=== PATIENT | male | born 1945 | race Caucasian/White ===

== ENCOUNTER 2018-03-12 21:40 | Observation (INO) | payer MEDICARE, OTHER ==
[~2018-03-12] VITALS: Ht 182.9 cm; Wt 70.3 kg
--- OUTSIDE RECORDS SUMMARY | 2018-03-12 21:44 | XMS REPORT ---
Author Author [facility] Address Unknown Phone Unavailable Care Team Providers Care Sleeping Car Porter Name Role Phone Unavailable Unavailable Problems This patient has no known problems. Allergies, Adverse Reactions, Alerts This patient has no known allergies or adverse reactions. Medications This patient has no known medications.
--- OUTSIDE RECORDS SUMMARY | 2018-03-12 21:44 | XMS REPORT | Clinical Summary ---
Author Author [employer] Organization [facility] Address Unknown Phone Unavailable Care Team Providers Care Telecom Coordinator Name Role Phone Bart Valiente MD PCP Allergies Comments Active Allergy Reactions Severity Noted Date Procaine 01/25/2017 Medications No known medications Active Problems Not on file Encounters Care Team Description Date Type Specialty Jo Conway MD Back pain, unspecified back location, unspecified back pain laterality, unspecified chronicity (Primary Dx) 03/26/2017 Transcribe Physical Therapy Orders after 03/11/2017 Social History Date Tobacco Use Types Packs/Day Years Used Unknown If Ever Smoked Alcohol Use Drinks/Week oz/Week Comments Defer Sex Assigned at Date Recorded Not on file Industry Job Start Date Occupation Not on file Not on file Not on file Travel End Travel History Travel Start No recent travel history available. Last Filed Vital Signs Not on file Plan of Treatment Health Maintenance Due Date Last Done Comments COLON CANCER SCREENING 1996 SHINGRIX VACCINE (1 of 2) 1996 ZOSTER VACCINE 2006 PNEUMOCOCCAL 10/07/2011 POLYSACCHARIDE VACCINE AGE 65 AND OVER PNEUMOCOCCAL-13 10/07/2011 INFLUENZA VACCINE 11/27/2017 Results Not on fileafter 03/11/2017 Insurance Payer Benefit Subscriber ID Type Phone Address Plan / Group AETNA AETNA xxxxxxxxxxx HMO HMO,POS,EP O, MC/EC Advance Directives Patient has advance care planning documents on file. For more information, pleas e contact: Guzman Dunaway [address] [facility] [address]
[2018-03-12 22:51] LABS: BASOPHILS % 0.2 % (0.0-1.0); EOSINOPHILS % 0.1 % (0.0-6.0); HEMOGLOBIN 15.3 g/dL (14.0-18.0); LYMPHOCYTES # (AUTO) 1.1 (1.0-3.2); LYMPHOCYTES % 6.4 % (18.0-39.1); MEAN CORPUSCULAR HEMOGLOBIN 29.7 pg (28-32); MEAN CORPUSCULAR VOLUME 87.2 fL (81-99); MONOCYTES # (AUTO) 0.7 (0.2-0.8); MONOCYTES % 4.4 % (4.4-11.3); NEUTROPHILS # (AUTO) 14.6 (2.1-6.9); NEUTROPHILS % 88.4 % (38.7-80.0); PLATELET COUNT 276 x10e3/uL (140-360); RED BLOOD COUNT 5.16 x10e6/uL (4.3-5.7); RED CELL DISTRIBUTION WIDTH 13.5 % (11.7-14.4)
[2018-03-12] MEDS: LIDOCAINE 5% PATCH TP SCH (23:00)
[2018-03-12 23:09] LABS: ANION GAP 17.5 mmol/L (8-16); BLOOD UREA NITROGEN 15 mg/dL (7-26); CARBON DIOXIDE 21 mmol/L (22-29); CHLORIDE 100 mmol/L (98-107); CREATININE, SERUM 0.89 mg/dL (0.72-1.25); POTASSIUM 4.5 mmol/L (3.5-5.1); SODIUM 134 mmol/L (136-145)
[2018-03-12 23:10] LABS: ALANINE AMINOTRANSFERASE 14 IU/L (0-55); ALBUMIN 3.8 g/dL (3.5-5.0); ALBUMIN/GLOBULIN RATIO 1.5 (0.8-2.0); ALKALINE PHOSPHATASE 83 IU/L (40-150); BUN/CREATININE RATIO 17 (6-25); CALCIUM 8.1 mg/dL (8.4-10.2); CREATINE KINASE 782 IU/L (30-200); EST GLOMERULAR FILTRATION RATE > 60 ML/MIN (60-); GLUCOSE 273 mg/dL (74-118)
--- NOTE | 2018-03-12 23:12 | Diagnostic Imaging Report ---
Exam: AP view of the chest and left rib series Indication: Fall with left-sided rib pain Comparison: None Findings: Bilateral upper lung bronchiectasis and scarring. Normal appearance of the cardiomediastinal silhouette. No pleural effusions or pneumothorax. Acute mildly displaced posterior lateral left eighth and ninth rib fractures. Impression: Acute mildly displaced posterior lateral left eighth and ninth rib fractures. No pneumothorax or hemothorax. Signed by: Dr. Elvi Bai M.D. on 03/12/2018 11:09 PM
[2018-03-12] MEDS ORDERED: KETOROLAC TROMETHAMINE 30 MG/ML VIAL IV STA (23:40)
[2018-03-12] MEDS ORDERED: ONDANSETRON HCL INJ 2 MG/ML VIAL IV STA (23:46)
[2018-03-12] MEDS: SODIUM CHLORIDE 0.9% 1000ML 1,000 ML IV SCH (23:50)
[2018-03-13] VITALS (8 sets, daily range): BP systolic 135–210; BP diastolic 85–110
[2018-03-13] MEDS ORDERED: MORPHINE SULFATE INJ 4 MG/ML INJ IV PRN
--- OUTSIDE RECORDS SUMMARY | 2018-03-13 00:29 | XMS REPORT | Clinical Summary ---
Author Author [employer] Organization [facility] Address Unknown Phone Unavailable Care Team Providers Care Clinical Documentation Spec Name Role Phone Bart Valiente MD PCP Allergies Comments Active Allergy Reactions Severity Noted Date Procaine 01/25/2017 Medications No known medications Active Problems Not on file Encounters Care Team Description Date Type Specialty Jo Conway MD Back pain, unspecified back location, unspecified back pain laterality, unspecified chronicity (Primary Dx) 03/26/2017 Transcribe Physical Therapy Orders after 03/12/2017 Social History Date Tobacco Use Types Packs/Day [...] INFLUENZA VACCINE 11/27/2017 Results Not on fileafter 03/12/2017 Insurance Payer Benefit Subscriber ID Type Phone Address Plan / Group AETNA AETNA xxxxxxxxxxx HMO HMO,POS,EP O, MC/EC Advance Directives Patient has advance care planning documents on file. For more information, pleas e contact: Guzman Dunaway [address] [place] [address]
[2018-03-13] MEDS ORDERED: NOVOLIN N100 UNIT/1 SC (01:34)
[2018-03-13] MEDS ORDERED: NOVOLIN R100 UNIT/1 SC (01:34)
[2018-03-13] MEDS: LOSARTAN POTASSIUM 100 MG TAB PO SCH ×2 (04:50→08:57)
[2018-03-13] MEDS ORDERED: HYDROCODONE/APAP 5MG-325MG TAB PO ONE (05:00)
[2018-03-13] MEDS ORDERED: HYDRALAZINE HCL 20 MG/ML VIAL IV PRN (05:15)
[2018-03-13 06:49] LABS: BASOPHILS % 0.2 % (0.0-1.0); EOSINOPHILS # (AUTO) 0.1 (0.0-0.4); EOSINOPHILS % 0.8 % (0.0-6.0); LYMPHOCYTES # (AUTO) 1.3 (1.0-3.2); LYMPHOCYTES % 14.7 % (18.0-39.1); MEAN CORPUSCULAR HEMOGLOBIN 29.8 pg (28-32); MEAN CORPUSCULAR HGB CONC 34.1 g/dL (31-35); MEAN CORPUSCULAR VOLUME 87.2 fL (81-99); MONOCYTES # (AUTO) 0.6 (0.2-0.8); PLATELET COUNT 218 x10e3/uL (140-360); RED CELL DISTRIBUTION WIDTH 13.3 % (11.7-14.4)
[2018-03-13 07:15] LABS: ALANINE AMINOTRANSFERASE 13 IU/L (0-55); ALBUMIN 3.3 g/dL (3.5-5.0); ALBUMIN/GLOBULIN RATIO 1.6 (0.8-2.0); ALKALINE PHOSPHATASE 76 IU/L (40-150); ANION GAP 12.9 mmol/L (8-16); BLOOD UREA NITROGEN 13 mg/dL (7-26); BUN/CREATININE RATIO 14 (6-25); CALCIUM 7.8 mg/dL (8.4-10.2); CARBON DIOXIDE 22 mmol/L (22-29); CHLORIDE 100 mmol/L (98-107); CREATININE, SERUM 0.91 mg/dL (0.72-1.25); EST GLOMERULAR FILTRATION RATE > 60 ML/MIN (60-); GLUCOSE 365 mg/dL (74-118); POTASSIUM 3.9 mmol/L (3.5-5.1); SODIUM 131 mmol/L (136-145)
[2018-03-13] MEDS: SODIUM CHLORIDE 0.9% 1000ML 1,000 ML IV SCH ×3 (08:57→22:47)
[2018-03-13] MEDS: LIDOCAINE 5% PATCH TP SCH (09:00)
[2018-03-13] MEDS: HYDROCODONE/APAP 5MG-325MG TAB PO PRN ×3 (09:44→20:48)
[2018-03-13] MEDS ORDERED: ACETAMINOPHEN 325 MG TAB PO PRN (12:45)
--- NOTE | 2018-03-13 13:29 | History and Physical ---
HISTORY OF PRESENT ILLNESS: This is a 72-year-old male with a past medical history positive for diabetes and hypertension. Apparently he fell at home. He had a syncopal episode. He does not remember what happened. He woke up and realized that he had fainted. He called his daughter and said his blood sugar was low. She took some snacks, and the blood sugar went up. The daughter left. Then he went to take a shower. He was having pain on the left side of the chest. The pain was so intense that he collapsed. He called his daughter, and he came to the emergency room. REVIEW OF SYSTEMS CARDIOVASCULAR: He has left-sided chest pain where the rib fractures are. No shortness of breath. GASTROINTESTINAL: No nausea. No vomiting. No diarrhea. GENITOURINARY: No frequency. No dysuria. RESPIRATORY: No shortness of breath. No cough. ALLERGIES: ALLERGIC TO NOVOCAIN. SOCIAL HISTORY: He lives by himself. He denies any alcohol or tobacco use. PHYSICAL EXAMINATION VITAL SIGNS: Blood pressure 135/90, temperature 98.1, heart rate 95 per minute. Respiratory 18 per minute. Oxygen saturation 95%. HEART: Regular rhythm. Normal S1, S2 sounds. LUNGS: Clear bilaterally. ABDOMEN: Soft. EXTREMITIES: Bruises on bilateral arms and legs. LABS: On the BMP, sodium 131, potassium 3.9, chloride 100, CO2 22, BUN 13, creatinine 0.91. Glucose 365. On the CBC, white blood count 9.10, hemoglobin 14.0, hematocrit 41.0, platelet count 219,000. AST 27, ALT 13, total bilirubin 0.4, alkaline phosphatase 76. He also had a chest x-ray done which showed rib fractures of the 8th and 9th ribs. Also, EKG showed normal sinus rhythm with some PACs. Carotid Doppler showed no evidence of any significant carotid stenosis on the preliminary report. CKs are extremely elevated also. CK-MB is positive, but troponins are negative. IMPRESSION 1. Status post syncopal episode. 2. Left 8th and 9th rib fractures. 3. Uncontrolled hypertension. 4. Rhabdomyolysis. 5. Uncontrolled diabetes mellitus, type 2. PLAN OF TREATMENT: Continue losartan 100 mg daily. Continue hydralazine 10 mg IV q.4 h. as needed for severe hypertension. The patient is refusing to take hydralazine. We put him on some [place] 1 tablet every 4 hours as needed for pain. He is refusing to take any IV narcotics for the pain. At the beginning, he was refusing to stay. Now, he seems to be more in agreement to stay. I explained to the patient that he has rhabdomyolysis, and he needs IV fluids to flush out all the toxins. Otherwise, that can damage his kidneys. We are going to consult Dr. Matt Tilley for the elevated CK-MB. We are going to consult Dr. Skaggs for neurology and Dr. Valiente for endocrinology because of the uncontrolled diabetes mellitus and episode of hypoglycemia he had before. Continue diabetic diet. Continue monitoring BUN, creatinine and electrolytes. Continue monitoring blood sugar a.c. and nightly. Going to continue monitoring his CPK. Job#: [id number]
[2018-03-13 15:41] LABS: FREE T4 (FREE THYROXINE) 0.97 ng/dL (0.9-1.8); THYROID STIMULATING HORMONE 1.339 uIU/mL (0.350-4.940)
--- NOTE | 2018-03-13 15:44 | Consultation ---
DATE OF CONSULTATION: March 13, 2018 ENDOCRINE CONSULTATION This is a patient of Dr. Chan. Thank you very much for referring this patient. HISTORY OF PRESENT ILLNESS: This is a 72-year-old white gentleman who is very well known to me from his previous hospital admissions. Patient is a known case of type 1 diabetes mellitus BRADY with recurrent problems with hypoglycemic episodes. According to the patient, he fell down and he had a syncopal episode and he was brought to the emergency room. The patient has been having problems with low blood sugars lately and is unaware of the hypoglycemic symptoms. He takes a combination of the NPH insulin 24 units twice a day and Humulin regular 15 three times a day. Patient also has history of hypertension. At the time of admission, his blood sugar was 365. His anion gap was normal. He was also found to have fracture of the ribs and rhabdomyolysis with high CKs. PHYSICAL EXAMINATION: GENERAL: Today the patient is alert, awake, a little bit apprehensive. VITAL SIGNS: His heart rate is around 78. Blood pressure 130/80 mmHg. HEENT: Examination essentially unremarkable. Thyroid is palpable. Clinically he is near euthyroid. CHEST: Bilateral vesicular breathing. He has mild bronchospasm . CARDIAC: Both 1st and 2nd heart sounds. There is no 3rd or 4th heart sound. Ejection sound grade 2/6. Patient has evidence of diabetic sensory neuropathy in both lower extremities. CLINICAL IMPRESSION: 1. Diabetes mellitus type 1, late-onset autoimmune diabetes of adulthood, with hypoglycemic episode. 2. Rule out seizure disorder. 3. Hypertension. The plan at this time is to do a hemoglobin A1c, thyroid function test. I am going to change him to a combination of the Humalog and the Levemir insulin during the hospital stay. Patient also needs to continue his glucose monitoring meter as well. Thanks again for referring this patient. I will be following this patient with you. Job#: [id number] EV
[2018-03-13 15:54] LABS: CREATINE KINASE MB 5.4 ng/mL (0-5.0)
[2018-03-13] MEDS ORDERED: DEXTROSE 50% SYRINGE 50 ML IV ONE (16:01)
--- NOTE | 2018-03-13 16:22 | Consultation ---
DATE OF CONSULTATION: March 13, 2018 NEUROLOGY CONSULTATION HISTORY OF PRESENT ILLNESS: Mr. Fitzgerald is a 72-year-old, right hand dominant man with past medical history significant for hypertension and diabetes mellitus admitted to [facility] on March 13, 2018, following a syncopal event. On the evening prior to admission, the patient was sitting at his desk, working on his computer, when he experienced an abrupt loss of consciousness. Mr. Fitzgerald does not report chest pain or tightness, palpitations, shortness of breath, dizziness (lightheadedness or vertigo), or numbness/tingling preceding the abrupt loss of consciousness. Mr. Fitzgerald lives alone, so the event was not witnessed. According to the patient, when he came to, he was lying on the floor next to his desk. Patient reports he was unconscious for approximately 2 hours. When he regained consciousness, the patient reports being confused as to why he was lying on the floor. However, he knew who he was, where he was, and that he needed help. Mr. Fitzgerald endorses a dull aching pain over the left side of the thorax, first noted when he regained consciousness. He does not report a headache, myalgias, tongue biting, drooling or vomiting, or bladder or bowel dysfunction. Shortly after he regained consciousness, the patient called his daughter to inform her of his fall. His daughter recommended the patient take a shower because it would "make me feel better." While in the shower, the patient coughed and experienced severe pain over the left side of the thorax. Mr. Fitzgerald reports the pain was so severe he fell to the floor of the shower. However, there was no loss of consciousness. After a few minutes, patient was able to stand and emerge from the shower. He checked a fingerstick blood glucose, which was 60. Mr. Fitzgerald called his daughter again. She came to the house and gave him a snack. Afterwards, Mr. Fitzgerald was brought to the Emergency Center at [facility] for further evaluation. Upon admission to the Emergency Center, the patient was afebrile with a blood pressure of 173/96 mmHg and a pulse of 89 beats per minute. His neurological examination was documented as being nonfocal. While in the Emergency Center, x-rays of the patient's chest and left-sided ribs were performed. These studies revealed acute, mildly displaced, posterior lateral left 8th and 9th rib fractures. Mr. Fitzgerald was then admitted to [facility] under observation status for further evaluation and treatment of his symptoms. Mr. Fitzgerald does not report a personal history of febrile seizures or other seizures. There is no known family history of seizures. The patient does not report prior head trauma or meningitis/encephalitis. REVIEW OF SYSTEMS: Pain over the left thorax, syncope. Otherwise, a 12-point review of systems is negative. PAST MEDICAL HISTORY: Hypertension, insulin-dependent diabetes mellitus. PAST SURGICAL HISTORY: Tonsillectomy, orthopedic procedure to repair a fracture of the right foreleg. PAST HOSPITALIZATIONS: Surgeries/procedures as listed. FAMILY MEDICAL HISTORY: The patient's paternal and maternal grandparents are . Medical histories are unknown. The patient's father is from coronary artery disease with myocardial infarction. The patient's mother is secondary to trauma. She had a history of thyroid disease as well. Mr. Fitzgerald has 1 sister who is alive and has lupus. The patient has 3 children, 2 daughters and 1 son, all of whom are alive and healthy. SOCIAL HISTORY: Mr. Fitzgerald is . 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 The patient quit smoking cigarettes approximately 12 days ago. He continues to smoke a pipe. Mr. Fitzgerald reports drinking an alcoholic beverage 1 to 2 times per week. He does not report current or prior recreational drug use. HOME MEDICATIONS: Losartan, Novolin N 22 units subcutaneously twice daily, Novolin R 15 units subcutaneously with meals and at bedtime. Allergies: NOVOCAIN. NO KNOWN FOOD ALLERGIES. NO KNOWN ALLERGY TO LATEX. NO KNOWN ALLERGIES TO IODINE OR OTHER CONTRAST MATERIALS. PHYSICAL EXAMINATION VITAL SIGNS: Height 72 inches, weight 164 pounds. BMI 22.2 kg per meter squared. Blood pressure 135/90 mmHg. Pulse 95 beats per minute. Respiratory rate 18 breaths per minute. Oxygen saturation 95% on room air. GENERAL: Patient is awake and alert, does not appear distressed. HEENT: Normocephalic and atraumatic. Pupils are equal, round, and reactive to light. Moist mucous membranes. NECK: Supple. No appreciable thyromegaly. No appreciable carotid bruits. CARDIOVASCULAR: S1 and S2, regular rate and rhythm. No murmurs, rubs, or gallops. RESPIRATORY: Clear to auscultation bilaterally. No wheezes, rhonchi or rales. EXTREMITIES: The skin is warm and dry. No clubbing, cyanosis, or edema. The posterior tibial and dorsalis pedis pulses are 1+ and symmetric. SKIN: Venous stasis ulcerations over the distal forelegs. NEUROLOGIC EXAMINATION MEMORY/ATTENTION: The patient is awake and alert. Oriented to person, place, time and situation. CRANIAL NERVES: Cranial nerve I: Not tested. Cranial nerves II, III, IV, and : Pupils are equal and round, react briskly to light (from 4 mm to 2 mm). Extraocular movements are intact. No nystagmus. Cranial nerve V: Sensation to light touch and pinprick is intact in the bilateral V1 through V3 distributions. Strength of the temporalis and masseter muscles is within normal limits. Cranial nerve VII: The face is symmetric as are all facial movements. Strength is within normal limits. Cranial nerve VIII: Hearing is intact to finger rub bilaterally. Cranial nerves IX and X: The soft palate elevates equally and symmetrically. Cranial nerve XI: Normal strength of the bilateral sternocleidomastoid and trapezius muscles. Cranial nerve XII: The tongue protrudes midline and moves symmetrically from side to side. STRENGTH: Bulk is normal. Strength is 5/5 in the bilateral deltoids, biceps, triceps, wrist flexors and extensors, finger flexors and extensors, intrinsic hand muscles, hip flexors, knee flexors and extensors, ankle dorsiflexion and plantarflexion, and intrinsic foot muscles. Tone is normal. DTRs: Deep tendon reflexes are 2+ and symmetric at the triceps, biceps, and brachioradialis. Deep tendon reflexes are 1+ at the left patella and absent at the right patella. Deep tendon reflexes are absent and symmetric at the Achilles. Plantar responses are flexor bilaterally. SENSATION: Sensation is intact to light touch and pinprick in both arms and both legs. CEREBELLAR: Nktsxa-xcei-ugfohw and heel-beckwith movements are intact without dysmetria or other impairment. GAIT: Deferred. SPEECH: Spontaneous speech is normal without appreciable dysarthria or aphasia. Repetition is intact. INVOLUNTARY MOVEMENTS: None. PRONATOR DRIFT: None. LABORATORY DATA: A comprehensive metabolic panel is significant for mild hyponatremia with serum sodium of 131, serum glucose of 365, calcium of 7.8, total protein of 5.4, albumin of 3.3, and globulin of 2.1. Serum glucoses have ranged from 172 to 365. Creatinine kinase 782, 765. CK-MB 9.90, 7.00. Troponin I 0.040, 0.039. The CBC with differential and platelets reveals a white blood cell count of 9.10 with 77.0% neutrophils, 14.7% lymphocytes, 7.0% monocytes, 0.8% eosinophils, and 0.2% basophils. The hemoglobin and hematocrit are 14.0 and 41.0, respectively. The platelet count is 218. DIAGNOSTIC STUDIES 1. Ribs with chest x-ray, 03/12/2018: Acute, mildly displaced posterior lateral left 8th and 9th rib fractures. No pneumothorax or hemothorax. 2. Electrocardiogram, 03/12/2018: Sinus rhythm at 90 beats per minute with premature atrial complexes. 3. Bilateral carotid artery ultrasound with Doppler, 03/12/2018: There is atherosclerosis without hemodynamically significant stenosis at the bilateral carotid bulbs. Flow is antegrade in the bilateral vertebral arteries. ASSESSMENT AND PLAN: Mr. Fitzgerald is a 72-year-old, right hand dominant man with past medical history significant for hypertension and insulin-dependent diabetes mellitus admitted to [facility] on March 13, 2018, status post syncopal event in the setting of relative hypoglycemia (fingerstick blood glucose of 60). The patient's neurological examination is nonfocal. His laboratory data and other diagnostic studies have been reviewed. In my opinion, there is low suspicion for an underlying neurological disorder as the cause of the patient's syncopal events. Therefore, there are no recommendations from neurology at this time. Thank you for this consultation. Time spent: 70 minutes. Job#: [id number] LEE RAMOS
[2018-03-13] MEDS ORDERED: INSULIN LISPRO 100 UNIT/1 ML 3ML VIAL SQ SCH ×2 (16:30)
[2018-03-13] MEDS: INSULIN LISPRO 100 UNIT/1 ML 3ML VIAL SQ SCH ×3 (16:30→21:00)
[2018-03-13] MEDS ORDERED: INSULIN DETEMIR 100 UNIT/ML PEN SQ SCH (21:00)
[2018-03-13] MEDS: INSULIN DETEMIR 100 UNIT/ML PEN SQ SCH (21:15)
[2018-03-13] MEDS: KETOROLAC TROMETHAMINE 30 MG/ML VIAL IV PRN (22:47)
[2018-03-14] VITALS (8 sets, daily range): BP systolic 96–182; BP diastolic 51–89
[2018-03-14] MEDS: KETOROLAC TROMETHAMINE 30 MG/ML VIAL IV PRN ×4 (02:52→23:10)
[2018-03-14 05:53] LABS: ANION GAP 13.6 mmol/L (8-16); BLOOD UREA NITROGEN 10 mg/dL (7-26); BUN/CREATININE RATIO 11 (6-25); CALCIUM 7.8 mg/dL (8.4-10.2); CARBON DIOXIDE 24 mmol/L (22-29); CHLORIDE 106 mmol/L (98-107); CREATININE, SERUM 0.93 mg/dL (0.72-1.25); EST GLOMERULAR FILTRATION RATE > 60 ML/MIN (60-); GLUCOSE 151 mg/dL (74-118); POTASSIUM 5.6 mmol/L (3.5-5.1); SODIUM 138 mmol/L (136-145)
[2018-03-14] MEDS: INSULIN LISPRO 100 UNIT/1 ML 3ML VIAL SQ SCH ×7 (07:30→20:02)
[2018-03-14] MEDS: INSULIN DETEMIR 100 UNIT/ML PEN SQ SCH ×2 (09:00→20:02)
[2018-03-14] MEDS: SODIUM CHLORIDE 0.9% 1000ML 1,000 ML IV SCH ×2 (09:05→17:10)
[2018-03-14] MEDS: LOSARTAN POTASSIUM 100 MG TAB PO SCH (09:05)
[2018-03-14] MEDS: LIDOCAINE 5% PATCH TP SCH (09:06)
--- NOTE | 2018-03-14 11:34 | Consultation ---
DATE OF CONSULTATION: March 14, 2018 CARDIOLOGY CONSULTATION REASON FOR CONSULTATION: Syncopal episode. Patient seen in room. He refuses cardiology consultation. He is very upset and wants to go home. He feels he does not need a cardiology evaluation. We will sign off. Please call with any questions. Dictated by: Kelvin Maher NP I talked to patient Very unhappy, no pain Rx etc... He does not want to be evaluated Job#: [id number] RICAHRD
[2018-03-14 11:35] LABS: CHOL/HDL RATIO 2.3 (3.9-4.7)
[2018-03-14] MEDS: HYDROCODONE/APAP 5MG-325MG TAB PO PRN (12:35)
--- NOTE | 2018-03-14 16:25 | Progress Note ---
DATE: INTERNAL MEDICINE PROGRESS NOTE SUBJECTIVE: The patient is still with pain on the side. He was started on an insulin regimen with Levemir and Humalog by Dr. Valiente, but the patient was refusing to take the Levemir. So, patient is being told by the aquatic performer he needs to continue the insulin regimen in order to know if that regimen will keep the blood sugar under control. He also refused to see a ict help desk officer, which we called because the CK-MB was elevated. Neurologist saw the patient, which is Dr. Skaggs. Her impression is that most likely the syncopal episode was related to hypoglycemia that he has. PHYSICAL EXAM: VITAL SIGNS: Blood pressure 140/81. Temperature 97.8. Heart rate 101 per minute. Respiratory rate 16 per minute. Oxygen saturation 95%. HEART: Shows regular rhythm, normal S1 and S2 sounds. LUNGS: Clear bilaterally. BMP shows sodium 138, potassium 4.7, chloride 106, CO2 24, BUN 10, creatinine 0.93, glucose 151. On the CBC: White blood count 9.10, hemoglobin is 14.0, hematocrit 41.0, platelet count 218,000. AST 27, ALT 13, total bilirubin 0.4, alkaline phosphatase 76. FINAL IMPRESSION: 1. Syncopal episode most likely related to hypoglycemia. 1. Uncontrolled hypertension. 2. Uncontrolled diabetes mellitus type 2. 3. Rhabdomyolysis. PLAN OF TREATMENT: Continue normal saline at 100 mL an hour. Continue losartan 100 mg daily. We are going to start Norvasc 5 mg daily for better blood pressure control. Continue hydralazine 10 mg IV push every 4 hours as needed for hypertension. He is on Levemir 15 units subcutaneously twice a day. Continue with Humalog 7 units with meals. Continue [place] 5/325 mg tablet q.4 hours as needed. Tylenol 325 mg q.4 hours as needed. Toradol 10 mg IV q.4 hours as needed. Continue monitoring blood sugar a.c. and nightly. Continue diabetic diet. Tentative discharge for tomorrow depending on the blood sugar numbers. Job#: [id number] EV
[2018-03-14] MEDS ORDERED: AMLODIPINE BESYLATE 5 MG TAB PO NR (17:45)
[2018-03-15] VITALS: BP 173/89
[2018-03-15] MEDS: HYDROCODONE/APAP 5MG-325MG TAB PO PRN ×3 (01:18→16:00)
[2018-03-15] MEDS: SODIUM CHLORIDE 0.9% 1000ML 1,000 ML IV SCH ×2 (03:26→15:02)
[2018-03-15 05:00] VITALS: BP 192/101
[2018-03-15] MEDS: KETOROLAC TROMETHAMINE 30 MG/ML VIAL IV PRN (05:28)
[2018-03-15] MEDS: INSULIN LISPRO 100 UNIT/1 ML 3ML VIAL SQ SCH ×4 (07:30→12:00)
[2018-03-15 08:00] VITALS: BP 152/89
[2018-03-15 08:34] LABS: ANION GAP 13.1 mmol/L (8-16); BLOOD UREA NITROGEN 12 mg/dL (7-26); BUN/CREATININE RATIO 16 (6-25); CALCIUM 7.7 mg/dL (8.4-10.2); CARBON DIOXIDE 23 mmol/L (22-29); CHLORIDE 103 mmol/L (98-107); CREATINE KINASE 381 IU/L (30-200); CREATININE, SERUM 0.77 mg/dL (0.72-1.25); EST GLOMERULAR FILTRATION RATE > 60 ML/MIN (60-); GLUCOSE 285 mg/dL (74-118); POTASSIUM 5.1 mmol/L (3.5-5.1); SODIUM 134 mmol/L (136-145)
[2018-03-15] MEDS: INSULIN DETEMIR 100 UNIT/ML PEN SQ SCH (09:00)
[2018-03-15] MEDS ORDERED: AMLODIPINE BESYLATE 5 MG TAB PO SCH ×2 (09:00)
[2018-03-15] MEDS: LOSARTAN POTASSIUM 100 MG TAB PO SCH (09:08)
[2018-03-15] MEDS: LIDOCAINE 5% PATCH TP SCH (09:08)
[2018-03-15 12:00] VITALS: BP 164/80
[2018-03-15] MEDS ORDERED: NORVASC5 MG PO (15:04)
[2018-03-15] MEDS ORDERED: TYLENOL WITH C1 EAC1 (15:06)
[2018-03-15] MEDS ORDERED: LOSARTAN POTAS100 MG PO (15:06)
[2018-03-15] MEDS ORDERED: LEVEMIR100 UNIT/1 SQ (15:07)
[2018-03-15] MEDS ORDERED: HUMALOG100 UNIT/3 SQ (15:08)
--- NOTE | 2018-03-16 04:18 | Discharge Summary ---
HOSPITAL COURSE: A 72-year-old male with past medical history positive for hypertension and diabetes. He fell. He had a syncopal episode at home most likely secondary to hypoglycemia. He has had some broken ribs on the left side, came to the hospital. He was found to have rhabdomyolysis. He was given IV fluids. He was started on Levemir for the uncontrolled diabetes. Dr. Valiente is supervising his diabetes right now. We consulted Dr. iTlley because of the cardiac enzymes, CK-MB were elevated, troponins were negative all the time. The patient refused to see the certified novell administrator. He was seen by neurologist also. Neurologist's impression was syncopal episode, most likely related to hypoglycemia. The CPK is coming down. Blood pressure is much better than when he came. He was with systolic of 200, right now the systolic is 152. We started him on Norvasc. Patient is willing to take the medications. At the beginning, he was refusing to take any new blood pressure medications. Patient is going home today if okay with Dr. Valiente. PHYSICAL EXAM HEART: Regular rhythm. Normal S1, S2 sounds. LUNGS: Clear bilaterally. ABDOMEN: Soft. VITAL SIGNS: Blood pressure 152/89, temperature 96.5, heart rate 110 per minute, respiratory rate 18 per minute, oxygen saturation 98%. LABS: On the BMP; sodium 134, potassium 5.1, chloride 103, CO2 of 23, BUN 12, creatinine 0.77, and glucose 295. CBC; white blood count 9.10, hemoglobin 14.0, hematocrit 41.0, platelet count 218,000. AST 27, ALT 13, total bilirubin 0.4, alkaline phosphatase of 76. FINAL IMPRESSIONS 1. Syncopal episode, most likely related to hypoglycemia. 2. Rhabdomyolysis. 3. Left 8th and 9th rib fractures. 4. Uncontrolled diabetes mellitus type 2. 5. Uncontrolled hypertension. PLAN OF TREATMENT: Continue with losartan 100 mg daily, Levemir 15 units twice a day, continue with Humalog 7 units with meals, Norvasc 5 mg daily. I also wrote the prescription for Tylenol No. 4 one tablet every 6 hours as needed for pain. Follow up with me in a week. Follow up with Dr. Valiente in a week. Continue diabetic and low-salt diet. MARY ARELLANO MD Job#: [id number] VAS
== END 2018-03-15 16:05 | disposition home or self-care (01) ==
LOC: ER 21:40 → INTOOBSV 03-13 00:25 → ERHOLD 03-13 00:25 → IMCU 03-13 00:49
PROVIDERS: ADMIT Internal Medicine; ATTEND Internal Medicine
DX: R55 Syncope and collapse (principal); E10.649 Type 1 diabetes mellitus with hypoglycemia without coma; T79.6XXA Traumatic ischemia of muscle, initial encounter; S22.42XA Multiple fractures of ribs, left side, initial encounter for closed fracture; I10 Essential (primary) hypertension; Z88.5 Allergy status to narcotic agent; Z79.4 Long term (current) use of insulin; W18.39XA Other fall on same level, initial encounter; Y92.019 Unspecified place in single-family (private) house as the place of occurrence of the external cause
CPT/HCPCS: 36415 ×4; 71101; 80048 ×2; 80053 ×2; 80061; 82550 ×4; 82553 ×3; 82948 ×3; 83036; 84132; 84439; 84443; 84484 ×2; 85025 ×2; 93005; 93306; 93880; 97116 ×2; 97162; 99284; G0378 ×3; G8978; G8979; J0360; J1885 ×3; J7030 ×4; J7799